=== PATIENT | male | born 1940 | race American Indian/Alaskan Native ===

== ENCOUNTER 2018-02-28 10:05 | Inpatient (IN) | payer MEDICARE, MEDICAID ==
[2018-02-28 10:18] VITALS: BMI 24.2
[2018-02-28 11:09] LABS: BASO # 0.03 K/mm3 (0.0-2.0); BASO % 0.2 % (0.0-3.0); EOS # 0.2 (0.0-0.7); EOS % 1.1 % (1.5-5.0); GRAN # 10.25 (1.4-6.5); GRAN % 78.5 % (50.0-68.0); HEMOGLOBIN 11.1 g/dL (14.0-18.0); LYMPH # 1.3 (1.2-3.4); LYMPH % 9.9 % (22.0-35.0); MEAN CELL VOLUME 84.9 fl (80.0-105.0); MEAN CORPUSCULAR HGB CONC 34.2 g/dl (31.0-37.0); MEAN PLATELET VOLUME 9.3 fl (7.0-11.0); MONO # 1.4 (0.1-0.6); MONO % 10.3 % (1.0-6.0); RBC 3.83 10^6/uL (3.5-6.1); RED CELL DISTRIBUTION WIDTH 12.9 % (11.5-14.5); WHITE BLOOD COUNT 13.1 10^3/ul (4.5-11.0)
[2018-02-28 11:19] LABS: ALB/GLOB RATIO 1.1 (1.1-1.8); ALBUMIN 3.6 g/dL (3.0-4.8); CALCIUM 9.6 mg/dL (8.4-10.5)
[2018-02-28] MEDS ORDERED: Iohexol 350 MG/100 ML VIAL ONE (11:28)
--- NOTE | 2018-02-28 11:59 | ED PDOC ---
Arrival/HPI - General Chief Complaint: Abnormal Skin Integrity Time Seen by Provider: 02/28/18 10:26 - History of Present Illness Narrative History of Present Illness (Text): 02/28/18 11:51 Patient is a 77 year old male with PMH of CAD who presents to the Emergency department for draining abscess in the right gluteal cleft. Patient says he noticed it 2 days ago as it was causing him some pain, then this morning he noticed it was draining purulent material. Patient says he thinks he had a fever yesterday because he was sweating but did not take his temperature at home. He denies chills, malaise, headache, chest pain, shortness of breath, abdominal pain, N&V, diarrhea, constipation, and LE pain/swelling. 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), denies alcohol use Past Medical History - Infectious Disease Hx of Infectious Diseases: None - Tetanus Immunization Tetanus Immunization: Unknown - Cardiac Hx Cardiac Disorders: Yes Hx Hypertension: Yes - Pulmonary Hx Respiratory Disorders: No Hx Chronic Obstructive Pulmonary Disease (COPD): Yes - Neurological Hx Neurological Disorder: No - HEENT Hx HEENT Disorder: Yes (WEARS RX GLASSES) Hx Cataracts: Yes (LEFT-) - Renal Hx Renal Disorder: No - Endocrine/Metabolic Hx Endocrine Disorders: No - Hematological/Oncological Hx Blood Transfusions: No Hx Blood Transfusion Reaction: No - Integumentary Hx Dermatological Disorder: No - Musculoskeletal/Rheumatological Hx Falls: No - Gastrointestinal Hx Gastrointestinal Disorders: No - Genitourinary/Gynecological Hx Reproductive Disorders: No - Psychiatric Hx Emotional Abuse: No Hx Physical Abuse: No Hx Substance Use: Yes (quit cocaine and pot use) - Past Surgical History Past Surgical History: Unable to Obtain - Surgical History Hx Cardiac Catheterization: Yes (10-13-13) Hx Coronary Stent: Yes (X2) - Anesthesia Hx Anesthesia Reactions: No Hx Malignant Hyperthermia: No - Suicidal Assessment Feels Threatened In Home Enviroment: No Family/Social History Family/Social History: Unknown Family HX Smoking Status: Former Smoker Hx Alcohol Use: Yes (quit) Hx Substance Use: Yes (quit cocaine and pot use) Allergies/Home Meds Allergies/Adverse Reactions: Allergies Penicillins Allergy (Verified 01/31/16 17:32) DIARRHEA Home Medications: Home Meds Medication Instructions Recorded Confirmed Aspirin [Aspirin Chewable] 81 mg PO DAILY 01/22/16 02/02/16 Review of Systems - Physician Review All systems were reviewed & negative as marked: Yes - Review of Systems Constitutional: Fevers Eyes: Normal. absent: Vision Changes ENT: Normal. absent: Hearing Changes Respiratory: Normal. absent: SOB, Cough, Wheezing Cardiovascular: Normal. absent: Chest Pain, Palpitations, Calf Pain Gastrointestinal: Normal. absent: Abdominal Pain, Constipation, Diarrhea, Nausea, Vomiting Genitourinary Male: Normal. absent: Dysuria, Frequency, Urinary Output Changes Musculoskeletal: Normal Skin: Abscess (right gluteal cleft, purulent drainage). absent: Pruritis Neurological: Normal. absent: Headache, Dizziness Physical Exam Vital Signs Temp Pulse Resp BP Pulse Ox 02/28/18 10:07 98.1 F 78 18 140/79 97 Temperature: Afebrile Pulse: Regular Respiratory Rate: Normal Appearance: Positive for: Well-Appearing, Non-Toxic, Comfortable Pain Distress: Mild Mental Status: Positive for: Alert and Oriented X 3 - Systems Exam Head: Present: Atraumatic, Normocephalic Pupils: Present: PERRL Extroacular Muscles: Present: EOMI Conjunctiva: Present: Normal Mouth: Present: Moist Mucous Membranes Neck: Present: Normal Range of Motion Respiratory/Chest: Present: Clear to Auscultation, Good Air Exchange. No: Respiratory Distress, Accessory Muscle Use Cardiovascular: Present: Regular Rate and Rhythm, Normal S1, S2. No: Murmurs Abdomen: Present: Normal Bowel Sounds. No: Tenderness, Distention, Peritoneal Signs Back: Present: Normal Inspection Upper Extremity: Present: Normal Inspection Lower Extremity: Present: Normal Inspection Neurological: Present: GCS=15, Speech Normal Skin: Present: Warm, Abscess (right gluteal cleft, small pinpoint area draining purulent material). No: Rashes Psychiatric: Present: Alert, Oriented x 3, Normal Insight, Normal Concentration Medical Decision Making ED Course and Treatment: 02/28/18 12:11 WBC 13.1, afebrile CT abd/pelvis with IV contrast shows perirectal abscess Gave abx General surgery consulted (Dr. Chatterjee) and surgical supervisor notified Will admit to Dr. Mcmullen - Lab Interpretations Lab Results: 02/28/18 11:05 02/28/18 11:05 Lab Results 02/28/18 11:05: Sodium 141, Potassium 3.1 L, Chloride 101, Carbon Dioxide 28, Anion Gap 15, BUN 19, Creatinine 1.5, Est GFR ( Amer) 55, Est GFR (Non- Af Amer) 45, Random Glucose 104, Calcium 9.6, Total Bilirubin 0.9, AST 65 H, ALT 88 H, Alkaline Phosphatase 68, Total Protein 7.0, Albumin 3.6, Globulin 3.3 , Albumin/Globulin Ratio 1.1 02/28/18 11:05: WBC 13.1 H D, RBC 3.83, Hgb 11.1 L, Hct 32.5 L, MCV 84.9, MCH 29.0, MCHC 34.2, RDW 12.9, Plt Count 291, MPV 9.3, Gran % 78.5 H, Lymph % (Auto ) 9.9 L, [place] % (Auto) 10.3 H, Eos % (Auto) 1.1 L, Baso % (Auto) 0.2, Gran # 10.25 H, Lymph # (Auto) 1.3, [place] # (Auto) 1.4 H, Eos # (Auto) 0.2, Baso # (Auto ) 0.03 - RAD Interpretation Radiology Orders: 02/28/18 10:53 ABD & PELVIS IV CONTRAST ONLY [CT] Stat - Medication Orders Current Medication Orders: Ciprofloxacin (Cipro 400mg/200ml Dsw) 400 mg in 200 mls @ 133.3 mls/hr IVPB STAT STA PRN Reason: Protocol Stop: 02/28/18 14:14 Metronidazole (Flagyl) 500 mg in 100 mls @ 100 mls/hr IVPB STAT STA PRN Reason: Protocol Stop: 02/28/18 13:43 - PA / CARDIOVASCULAR OR NURSE / Resident Statement / has reviewed & agrees with the documentation as recorded. / has examined the patient and agrees with the treatment plan. Disposition/Present on Arrival - Present on Arrival Any Indicators Present on Arrival: No History of DVT/PE: No History of Uncontrolled Diabetes: No Urinary Catheter: No History of Decub. Ulcer: No History Surgical Site Infection Following: None - Disposition Have Diagnosis and Disposition been Completed?: Yes Diagnosis: Perirectal abscess Disposition Time: 13:29 Condition: FAIR Referrals: Benedict,Milana, MD [Primary Care Provider] - Follow up with primary Forms: Connect (Tajik)
--- NOTE | 2018-02-28 12:40 | CT ---
PROCEDURE: CT Abdomen and Pelvis with contrast HISTORY: perirectal abscess COMPARISON: None. TECHNIQUE: Contrast dose: 100 cc of Omni 350 Radiation dose: Total exam DLP = 266 mGy-cm. This CT exam was performed using one or more of the following dose reduction techniques: Automated exposure control, adjustment of the mA and/or kV according to patient size, and/or use of iterative reconstruction technique. FINDINGS: LOWER THORAX: Unremarkable. LIVER: Unremarkable. No gross lesion or ductal dilatation. GALLBLADDER AND BILE DUCTS: Unremarkable. PANCREAS: Unremarkable. No gross lesion or ductal dilatation. SPLEEN: Unremarkable. ADRENALS: Unremarkable. No mass. KIDNEYS AND URETERS: Unremarkable. No hydronephrosis. No solid mass. VASCULATURE: Unremarkable. No aortic aneurysm. BOWEL: Unremarkable. No obstruction. No gross mural thickening. There is a multiloculated fluid collection on the right side of the rectum and perineum consistent with a rectal abscess. This measures 2.8 cm with by 7.1 cm AP x 6 cm height. APPENDIX: Normal appendix. PERITONEUM: Unremarkable. No free fluid. No free air. LYMPH NODES: Unremarkable. No enlarged lymph nodes. BLADDER: Unremarkable. REPRODUCTIVE: The prostate is enlarged measuring 42 x 48 by 56 mm BONES: No acute fracture. OTHER FINDINGS: None. IMPRESSION: There is a multiloculated fluid collection on the right side of the rectum and perineum consistent with a rectal abscess. This measures 2.8 cm with by 7.1 cm AP x 6 cm height.
[2018-02-28] MEDS ORDERED: metroNIDAZOLE IV 500 mg/100 ml 500 MG/100 ML BAG IVPB STA (12:44)
[2018-02-28] MEDS ORDERED: Ciprofloxacin 400mg/200ml D5W 400 MG/200 ML BAG IVPB STA (12:44)
--- NOTE | 2018-02-28 13:38 | CP.PCM.CON ---
History of Present Illness - History of Present Illness History of Present Illness: Surgery Consult note. Dr. Chatterjee 77yo M with PMHx of CAD, HTN, COPD here for evaluation of perianal pain. Patient reports a lesion on the right buttock, close to the anus, which he describes as a boil which started 3 days ago. He reports subjective fevers and chills over the same period of time. Denies any N/V/D. Has been having normal bowel movements, no blood noted. States that the lesion has been draining a small amount of yellow discharge since yesterday. Does report similar complaints about 1 year ago which improved without any interventions at that time. This episode is more painful and he decided to come into the ER for further evaluation. PMHx: CAD x/p stents x2, HTN, Cataract, COPD PSHx: Denies Family Hx: Non-contributory Social Hx: Former smoker, occasional marijuana use, Previous hx of cocaine addiction (denies current use); Denies ETOH. Allergy: PCN Review of Systems - Review of Systems All systems: reviewed and no additional remarkable complaints except - Constitutional Constitutional: Chills, Fever - Cardiovascular Cardiovascular: absent: Chest Pain, Dyspnea - Respiratory Respiratory: absent: Cough - Gastrointestinal Gastrointestinal: absent: Abdominal Pain, Nausea, Vomiting - Genitourinary Genitourinary: absent: Dysuria - Integumentary Integumentary: Lesions Past Patient History - Infectious Disease Hx of Infectious Diseases: None - Tetanus Immunizations Tetanus Immunization: Unknown - Past Social History Smoking Status: Former Smoker Alcohol: None Drugs: Denies, Other (previous hx of cocaine abuse/dependence) - CARDIAC Hx Cardiac Disorders: Yes Hx Hypertension: Yes - PULMONARY Hx Respiratory Disorders: No Hx Chronic Obstructive Pulmonary Disease (COPD): Yes - NEUROLOGICAL Hx Neurological Disorder: No - HEENT Hx HEENT Problems: Yes (WEARS RX GLASSES) Hx Cataracts: Yes (LEFT-) - RENAL Hx Chronic Kidney Disease: No - ENDOCRINE/METABOLIC Hx Endocrine Disorders: No - HEMATOLOGICAL/ONCOLOGICAL Hx Blood Transfusions: No Hx Blood Transfusion Reaction: No - INTEGUMENTARY Hx Dermatological Problems: No - MUSCULOSKELETAL/RHEUMATOLOGICAL Hx Falls: No - GASTROINTESTINAL Hx Gastrointestinal Disorders: No - GENITOURINARY/GYNECOLOGICAL Hx Reproductive Disorders: No - PSYCHIATRIC Hx Emotional Abuse: No Hx Physical Abuse: No Hx Substance Use: Yes (quit cocaine and pot use) - SURGICAL HISTORY Hx Cardiac Catheterization: Yes (10-13-13) Hx Coronary Stent: Yes (X2) - ANESTHESIA Hx Anesthesia Reactions: No Hx Malignant Hyperthermia: No Meds Allergies/Adverse Reactions: Allergies Allergy/AdvReac Type Severity Reaction Status Date / Time Penicillins Allergy DIARRHEA Verified 01/31/16 17:32 - Medications Medications: Current Medications Ciprofloxacin (Cipro 400mg/200ml Dsw) 400 mg in 200 mls @ 133.3 mls/hr IVPB STAT STA PRN Reason: Protocol Stop: 02/28/18 14:14 Metronidazole (Flagyl) 500 mg in 100 mls @ 100 mls/hr IVPB STAT STA PRN Reason: Protocol Stop: 02/28/18 13:43 Physical Exam - Constitutional Appears: Well, Non-toxic, No Acute Distress - Head Exam Head Exam: ATRAUMATIC, NORMAL INSPECTION, NORMOCEPHALIC - Eye Exam Eye Exam: EOMI, Normal appearance - ENT Exam ENT Exam: Mucous Membranes Moist - Respiratory Exam Respiratory Exam: NORMAL BREATHING PATTERN. absent: Accessory Muscle Use, Respiratory Distress - Cardiovascular Exam Cardiovascular Exam: absent: JVD - GI/Abdominal Exam GI & Abdominal Exam: Soft. absent: Distended, Guarding, Rebound, Rigid, Tenderness - Rectal Exam Additional comments: Left buttock with yellow drainage from small opening appreciated. No fluctuance , some induration. no eyrthema Rectal exam: no hemorrhoids, no blood, no internal fluctuance appreciated. - Extremities Exam Extremities exam: Positive for: normal inspection - Neurological Exam Neurological exam: Alert, Oriented x3 Results - Vital Signs Recent Vital Signs: Last Vital Signs Temp 98.1 F 02/28/18 10:07 Pulse 63 02/28/18 12:20 Resp 18 02/28/18 12:20 BP 119/58 L 02/28/18 12:20 Pulse Ox 98 02/28/18 12:20 - Labs Result Diagrams: 02/28/18 11:05 02/28/18 11:05 Labs: Laboratory Results - last 24 hr 02/28/18 02/28/18 11:05 11:05 WBC 13.1 H D RBC 3.83 Hgb 11.1 L Hct 32.5 L MCV 84.9 MCH 29.0 MCHC 34.2 RDW 12.9 Plt Count 291 MPV 9.3 Gran % 78.5 H Lymph % (Auto) 9.9 L [place] % (Auto) 10.3 H Eos % (Auto) 1.1 L Baso % (Auto) 0.2 Gran # 10.25 H Lymph # (Auto) 1.3 [place] # (Auto) 1.4 H Eos # (Auto) 0.2 Baso # (Auto) 0.03 Sodium 141 Potassium 3.1 L Chloride 101 Carbon Dioxide 28 Anion Gap 15 BUN 19 Creatinine 1.5 Est GFR ( Amer) 55 Est GFR (Non-Af Amer) 45 Random Glucose 104 Calcium 9.6 Total Bilirubin 0.9 AST 65 H ALT 88 H Alkaline Phosphatase 68 Total Protein 7.0 Albumin 3.6 Globulin 3.3 Albumin/Globulin Ratio 1.1 Assessment & Plan - Assessment and Plan (Free Text) Assessment: 77 yo M with perirectal abscess Plan: - Plan for bedside Incision and drainage today - Consent obtained and on chart - F/u wound cultures - Continue IV abx - Pain management - f/u AM labs Further recs as per Dr. Sen Bentley PGY1 surgery pager: [phone]
[2018-02-28] MEDS ORDERED: Potassium Chloride 20 mEq ER Tab PO STA (13:43)
[2018-02-28] MEDS ORDERED: Lidocaine 1% Inj (20ml) IJ STA (15:00)
[2018-02-28] MEDS ORDERED: HYDROmorphone 0.5 mg/0.5 ml ISec IVP STA (15:39)
--- NOTE | 2018-02-28 16:42 | PCM.SURG1 ---
Surgeon's Initial Post Op Note - Surgeon's Notes Surgeon: Dr. Chatterjee Assembler Surgical Garment: Sheree PGY1, Pernell PGY1 Type of Anesthesia: Local Pre-Operative Diagnosis: Perirectal abscess Operative Findings: Written consent obtained. Patient medicated with Dilaudid 0.5mg IVP. Patient prepped with betadine and draped in the usual sterile fashion in the prone position. Approximately 20cc of Lidocaine 1% used for local anesthesia, injected using 30G needle. Once adequate anesthesia was obtained, a #11 scalpel was used to create a cruciate incision over the most fluctuant portion of the abscess cavity. A small salena clamp was used to break up any loculations within the abscess cavity. Approximately 25cc of purulent material was expressed from the wound. A wound culture was obtained in sterile conditions and sent to the lab. The cavity was irrigated with copious amounts of normal saline. 1/4in iodoform gauze was used for packing. Wound dressed with sterile gauze and tape. Patient tolerated procedure well. No immediate complications noted. Post-Operative Diagnosis: same Operation Performed: Incision and Drainage of Perirectal abscess Specimen/Specimens Removed: wound culture Estimated Blood Loss: EBL {In ML}: 5 Blood Products Given: N/A Drains Used: No Drains Post-Op Condition: Good Date of Surgery/Procedure: 02/28/18 Time of Surgery/Procedure: 16:43
[2018-02-28] MEDS ORDERED: Oxycodone/Acetaminophen 5/325 mg Tab PO PRN (16:45)
[2018-02-28] MEDS: Pantoprazole 40 mg EC Tab PO SCH (17:17)
[2018-02-28] MEDS: Sucralfate 1 gm/10 ml Oral Susp UD PO SCH (17:17)
[2018-02-28 17:18] LABS: INR 1.31 (0.93-1.08)
[2018-02-28] MEDS: metroNIDAZOLE IV 500 mg/100 ml 500 MG/100 ML BAG IVPB SCH (22:05)
[2018-03-01] MEDS ORDERED: Pneumococcal 23-Valent Vaccine IM ONE (00:16)
[2018-03-01] MEDS: metroNIDAZOLE IV 500 mg/100 ml 500 MG/100 ML BAG IVPB SCH ×3 (05:37→21:06)
[2018-03-01] MEDS: Pantoprazole 40 mg EC Tab PO SCH ×2 (05:38→17:19)
[2018-03-01 07:54] LABS: BASO # 0.02 K/mm3 (0.0-2.0); BASO % 0.2 % (0.0-3.0); EOS # 0.4 (0.0-0.7); EOS % 4.3 % (1.5-5.0); GRAN # 5.63 (1.4-6.5); GRAN % 67.4 % (50.0-68.0); HEMOGLOBIN 10.4 g/dL (14.0-18.0); LYMPH # 1.7 (1.2-3.4); LYMPH % 19.8 % (22.0-35.0); MEAN CELL VOLUME 85.9 fl (80.0-105.0); MEAN CORPUSCULAR HEMOGLOBIN 28.7 pg (25.0-35.0); MEAN CORPUSCULAR HGB CONC 33.4 g/dl (31.0-37.0); MEAN PLATELET VOLUME 9.2 fl (7.0-11.0); MONO # 0.7 (0.1-0.6); MONO % 8.3 % (1.0-6.0); RBC 3.62 10^6/uL (3.5-6.1); RED CELL DISTRIBUTION WIDTH 12.9 % (11.5-14.5); WHITE BLOOD COUNT 8.4 10^3/ul (4.5-11.0)
[2018-03-01 08:08] LABS: CALCIUM 9.4 mg/dL (8.4-10.5)
[2018-03-01] MEDS: Sucralfate 1 gm/10 ml Oral Susp UD PO SCH ×2 (09:09→17:19)
--- NOTE | 2018-03-01 09:33 | CP.PCM.PN ---
Subjective - Date & Time of Evaluation Date of Evaluation: 03/01/18 Time of Evaluation: 07:30 - Subjective Subjective: General Surgery Note for Dr. Chatterjee Patient seen and examined at bedside. No acute event overnight. Patient is s/p bedside I&D POD#1. Patient denies pain. He has been afebrile. Patient is tolerating diet. He admits to flatus but denies BM. No complaints at this time. Objective - Vital Signs/Intake and Output Vital Signs (last 24 hours): Temp Pulse Resp BP Pulse Ox 98.1 F 55 L 20 107/59 L 99 03/01/18 08:26 03/01/18 08:26 03/01/18 08:26 03/01/18 09:08 03/01/18 08:26 Intake and Output: 03/01/18 03/01/18 06:59 18:59 Intake Total 1960 Output Total 2100 Balance -140 - Medications Medications: Current Medications Aspirin (Aspirin Chewable) 81 mg PO DAILY [facility] Last Admin: 03/01/18 09:09 Dose: 81 mg Metronidazole (Flagyl) 500 mg in 100 mls @ 100 mls/hr IVPB Q8 [facility]AD[facility] PRN Reason: Protocol Last Admin: 03/01/18 05:37 Dose: 100 mls/hr Ibuprofen (Motrin Tab) 400 mg PO Q6H PRN PRN Reason: Pain, Mild (1-3) Levofloxacin/Dextrose (Levaquin 750mg) 750 mg IVPB Q48H LADY PRN Reason: Protocol Last Admin: 03/01/18 09:09 Dose: 750 mg Oxycodone/Acetaminophen (Percocet 5/325 Mg Tab) 1 tab PO Q6H PRN PRN Reason: Pain, moderate (4-7) Stop: 03/03/18 16:46 Last Admin: 03/01/18 09:07 Dose: 1 tab Pantoprazole Sodium (Protonix Ec Tab) 40 mg PO 0630,1630 [facility] Last Admin: 03/01/18 05:38 Dose: 40 mg Ramipril (Altace) 2.5 mg PO DAILY [facility] Last Admin: 03/01/18 09:08 Dose: 2.5 mg Sucralfate (Carafate Oral Susp) 1 gm PO BID [facility] Last Admin: 03/01/18 09:09 Dose: 1 gm - Labs Labs: 03/01/18 07:00 03/01/18 07:00 PT 15.0 SECONDS (9.4-12.5) H 02/28/18 16:55 INR 1.31 (0.93-1.08) H 02/28/18 16:55 - Constitutional Appears: No Acute Distress - Head Exam Head Exam: ATRAUMATIC, NORMOCEPHALIC - Eye Exam Eye Exam: EOMI, Normal appearance Pupil Exam: PERRL - Neck Exam Neck Exam: Normal Inspection - Respiratory Exam Respiratory Exam: NORMAL BREATHING PATTERN - Cardiovascular Exam Cardiovascular Exam: REGULAR RHYTHM - GI/Abdominal Exam GI & Abdominal Exam: Soft, Normal Bowel Sounds. absent: Tenderness - Rectal Exam Rectal Exam: NORMAL INSPECTION Additional comments: I&D dressing and packing changed today - clean, dry and intact edema and induration has improved - Extremities Exam Extremities Exam: Normal Capillary Refill - Back Exam Back Exam: absent: CVA tenderness (L), CVA tenderness (R) - Neurological Exam Neurological Exam: Alert, Awake, CN II-XII Intact, Oriented x3 - Psychiatric Exam Psychiatric exam: Normal Affect, Normal Mood - Skin Skin Exam: Dry, Warm Assessment and Plan - Assessment and Plan (Free Text) Assessment: 77 M with perirectal abscess s/p bedside I&D POD#1 Plan: - f/u wound cultures - Continue IV abx - Pain management - Further recs as per Dr. Sen Gimenez PGY1
[2018-03-01] MEDS ORDERED: Potassium Chloride 20 mEq ER Tab PO ONE (09:44)
[2018-03-01] MEDS ORDERED: levoFLOXacin 750 mg in D5W 150 ML BAG IVPB SCH (10:00)
[2018-03-02] MEDS: Pantoprazole 40 mg EC Tab PO SCH ×2 (05:43→17:02)
[2018-03-02] MEDS: Sucralfate 1 gm/10 ml Oral Susp UD PO SCH ×2 (09:04→17:02)
--- NOTE | 2018-03-02 09:24 | CP.PCM.PN ---
Subjective - Date & Time of Evaluation Date of Evaluation: 03/02/18 Time of Evaluation: 09:21 - Subjective Subjective: Surgery: Dr Chatterjee Pt seen and examined. No acute overnight events. States he feels well and pain is well controlled. He admits to tolerating his diet & ambulating. Denies fevers , chills. Objective - Vital Signs/Intake and Output Vital Signs (last 24 hours): Temp Pulse Resp BP Pulse Ox 98.2 F 56 L 18 130/70 99 03/02/18 06:00 03/02/18 06:00 03/02/18 06:00 03/02/18 09:04 03/02/18 06:00 Intake and Output: 03/02/18 03/02/18 06:59 18:59 Intake Total 300 Output Total 0 Balance 300 - Medications Medications: Current Medications Aspirin (Aspirin Chewable) 81 mg PO DAILY [facility] Last Admin: 03/02/18 09:05 Dose: 81 mg Ibuprofen (Motrin Tab) 400 mg PO Q6H PRN PRN Reason: Pain, Mild (1-3) Levofloxacin (Levaquin) 750 mg PO Q48H [facility] Stop: 03/06/18 10:01 Metronidazole (Flagyl) 500 mg PO Q8 [facility] Stop: 03/05/18 22:01 Last Admin: 03/02/18 05:43 Dose: 500 mg Oxycodone/Acetaminophen (Percocet 5/325 Mg Tab) 1 tab PO Q6H PRN PRN Reason: Pain, moderate (4-7) Stop: 03/03/18 16:46 Last Admin: 03/01/18 09:07 Dose: 1 tab Pantoprazole Sodium (Protonix Ec Tab) 40 mg PO 0630,1630 [facility] Last Admin: 03/02/18 05:43 Dose: 40 mg Ramipril (Altace) 2.5 mg PO DAILY [facility] Last Admin: 03/02/18 09:04 Dose: 2.5 mg Sucralfate (Carafate Oral Susp) 1 gm PO BID [facility] Last Admin: 03/02/18 09:04 Dose: 1 gm - Labs Labs: 03/01/18 07:00 03/01/18 07:00 PT 15.0 SECONDS (9.4-12.5) H 02/28/18 16:55 INR 1.31 (0.93-1.08) H 02/28/18 16:55 - Constitutional Appears: Well, No Acute Distress - ENT Exam ENT Exam: Mucous Membranes Moist - Respiratory Exam Respiratory Exam: NORMAL BREATHING PATTERN - Cardiovascular Exam Cardiovascular Exam: RRR - GI/Abdominal Exam GI & Abdominal Exam: Soft. absent: Distended, Tenderness - Rectal Exam Additional comments: L gluteal incision with packing, no erythema or induration - Neurological Exam Neurological Exam: Alert, Awake, Oriented x3 - Skin Skin Exam: Dry, Warm Assessment and Plan - Assessment and Plan (Free Text) Assessment: 77M with perirectal abscess s/p bedside I&D; POD#2 Plan: - cont daily packing changes with iodoform - cont ABX - plan for DC with PO ABX tomorrow - d/w Dr. Sen Chakraborty, PGY-3
[2018-03-02] MEDS ORDERED: POLYETHYLENE GLYCOL 3350 17 GM/Dose PACKET PO ONE (14:30)
--- NOTE | 2018-03-03 05:15 | PN ---
DATE: 03/01/2018 SUBJECTIVE: The patient is a 77-year-old male. The patient was seen and examined at the bedside on 03/01/2018 and looking comfortable. No nausea, vomiting or diarrhea. No hematuria or hematochezia. No swelling of the leg. No chest pain. No palpitation. No headache. No dizziness. He admits to flatus, but denies bowel movement. PHYSICAL EXAMINATION: GENERAL: Temperature 98.1, pulse 55, respiratory rate 20, blood pressure 107/59, pulse oximetry is 99. HEENT: Head, normocephalic and atraumatic. Eyes, PERRLA. Extraocular muscles intact. Conjunctivae clear. Nose patent. Mucous membrane moist. NECK: Supple. No carotid bruit. No JVD or thyromegaly. CHEST: Bilaterally symmetrical. HEART: S1, S2 positive. LUNGS: Clear to auscultation. ABDOMEN: Soft. Bowel sounds present. No organomegaly. EXTREMITIES: No edema. No cyanosis. NEUROLOGIC: The patient is awake, alert. Moving all four extremities. No focal deficit. MEDICATIONS: Aspirin, Flagyl, morphine, Levaquin, Percocet, Protonix, Altace and Carafate. LABORATORY DATA: White blood cell is 8.4, hemoglobin 10.4, hematocrit 31.1, platelets 314. Sodium 146, potassium 3.3, BUN 17, creatinine 1.5 and glucose 105. ASSESSMENT AND PLAN: Mr. Patrick Castañeda is a 77-year-old male with anemia; hypokalemia, replaced; came with perirectal abscess, status post bedside incision and drainage, postoperative day 1. Followup wound culture. Continue IV antibiotics, pain management as per Dr. Chatterjee's team, CAT scan of abdomen and pelvis done, reviewed by me. Patient has history of coronary artery disease, status post two stents in 2012. Getting aspirin and ramipril. Gastrointestinal and deep venous thrombosis prophylaxis. Repeat labs. We will followup. Milana Mcmullen MD
[2018-03-03 06:30] LABS: HEMOGLOBIN 10.4 g/dL (14.0-18.0); MEAN CELL VOLUME 85.6 fl (80.0-105.0); MEAN CORPUSCULAR HEMOGLOBIN 28.2 pg (25.0-35.0); MEAN CORPUSCULAR HGB CONC 32.9 g/dl (31.0-37.0); MEAN PLATELET VOLUME 9.2 fl (7.0-11.0); RBC 3.69 10^6/uL (3.5-6.1); RED CELL DISTRIBUTION WIDTH 13.1 % (11.5-14.5); WHITE BLOOD COUNT 5.2 10^3/ul (4.5-11.0)
[2018-03-03] MEDS: Pantoprazole 40 mg EC Tab PO SCH (06:37)
[2018-03-03 07:08] LABS: CALCIUM 9.3 mg/dL (8.4-10.5)
[2018-03-03] MEDS ORDERED: POLYETHYLENE GLYCOL 3350 17 GM/Dose PACKET PO STA (07:56)
--- NOTE | 2018-03-03 08:33 | CP.PCM.PN ---
Subjective - Date & Time of Evaluation Date of Evaluation: 03/03/18 Time of Evaluation: 08:00 - Subjective Subjective: Surgery Progress note. Dr. Chatterjee Pt seen and examined at bedside. Pain well controlled. Perirectal wound packing removed this morning during rounds. Wound open and draining minimal purulent material. Patient denies fevers or chills. No new complaints. Objective - Vital Signs/Intake and Output Vital Signs (last 24 hours): Temp Pulse Resp BP Pulse Ox 97.9 F 51 L 19 134/70 100 03/02/18 16:00 03/02/18 16:00 03/02/18 16:00 03/02/18 16:00 03/02/18 16:00 Intake and Output: 03/03/18 03/03/18 06:59 18:59 Intake Total 420 Balance 420 - Medications Medications: Current Medications Aspirin (Aspirin Chewable) 81 mg PO DAILY [facility] Last Admin: 03/02/18 09:05 Dose: 81 mg Docusate Sodium (Colace) 100 mg PO BID [facility] Stop: 03/03/18 13:00 Last Admin: 03/02/18 17:02 Dose: 100 mg Ibuprofen (Motrin Tab) 400 mg PO Q6H PRN PRN Reason: Pain, Mild (1-3) Last Admin: 03/02/18 21:54 Dose: 400 mg Levofloxacin (Levaquin) 750 mg PO Q48H [facility] Stop: 03/06/18 10:01 Magnesium Oxide (Mag-Ox) 400 mg PO BID [facility] Metronidazole (Flagyl) 500 mg PO Q8 [facility] Stop: 03/05/18 22:01 Last Admin: 03/03/18 06:37 Dose: 500 mg Oxycodone/Acetaminophen (Percocet 5/325 Mg Tab) 1 tab PO Q6H PRN PRN Reason: Pain, moderate (4-7) Stop: 03/03/18 16:46 Last Admin: 03/01/18 09:07 Dose: 1 tab Pantoprazole Sodium (Protonix Ec Tab) 40 mg PO 0630,1630 [facility] Last Admin: 03/03/18 06:37 Dose: 40 mg Ramipril (Altace) 2.5 mg PO DAILY [facility] Last Admin: 03/02/18 09:04 Dose: 2.5 mg Sucralfate (Carafate Oral Susp) 1 gm PO BID [facility] Last Admin: 03/02/18 17:02 Dose: 1 gm - Labs Labs: 03/03/18 06:00 03/03/18 06:00 PT 15.0 SECONDS (9.4-12.5) H 02/28/18 16:55 INR 1.31 (0.93-1.08) H 02/28/18 16:55 - Constitutional Appears: Well, Non-toxic, No Acute Distress - Head Exam Head Exam: ATRAUMATIC, NORMAL INSPECTION, NORMOCEPHALIC - Eye Exam Eye Exam: EOMI, Normal appearance - ENT Exam ENT Exam: Mucous Membranes Moist - Respiratory Exam Respiratory Exam: NORMAL BREATHING PATTERN. absent: Accessory Muscle Use, Respiratory Distress - Cardiovascular Exam Cardiovascular Exam: RRR. absent: JVD - GI/Abdominal Exam GI & Abdominal Exam: Soft. absent: Distended, Firm, Guarding, Rigid, Tenderness , Rebound - Rectal Exam Additional comments: right babs rectal wound with minimal purulent material expressed. Packing removed. Clean and dry gauze replaced. No erythema noted around wound. Improving induration - Extremities Exam Extremities Exam: Normal Inspection. absent: Calf Tenderness - Neurological Exam Neurological Exam: Alert, Awake, Oriented x3 - Skin Skin Exam: Dry, Intact, Normal Color, Warm Assessment and Plan - Assessment and Plan (Free Text) Assessment: 77yo M with Babs-rectal abscess. S/p I&D. POD 3 Plan: - wound packing removed this morning - Patient cleared for discharge - Recommend PO Abx: Bactrim - consider PO probiotic capsules - Keep area clean and dry. Dry gauze and tape as needed - Miralax and bowel function prior to discharge - Follow up with Dr. Chatterjee in clinic. Call for appointment Further recs as per Dr. Sen Bentley PGY1 surgery pager: [phone]
--- NOTE | 2018-03-03 08:33 | HP ---
DATE OF EXAM: 02/28/2018 The patient is a 77-year-old male. CHIEF COMPLAINT: Abscess on the buttock. HISTORY OF PRESENT ILLNESS: is a 77-year-old male, was seen and examined by me on the bedside on 02/28/2018. Patient has past medical history of coronary artery disease, came to the emergency room for draining abscess in the right gluteal cleft. Patient said he noticed it 2 days ago as it was causing him some pain. Then, the day of admission, patient noticed that it was draining purulent material. Patient states he thinks he had fever yesterday because he was sweating out, but not taking his temporary medications at home. He denied chills, malaise or headache. No nausea, vomiting or diarrhea. No hematuria or hematochezia. No swelling of the leg. PAST MEDICAL HISTORY: Coronary artery disease, SP 2 stents in 2012, hypertension, COPD, cataract surgery, history of substance abuse, quit cocaine and pot use, history of coronary artery stenting. FAMILY HISTORY: Father and mother, noncontributory. HABITS: Former smoker. Alcohol, quit. Substance use of cocaine and pot. ALLERGIES: PATIENT IS ALLERGIC WITH PENICILLIN, CAUSING DIARRHEA. HOME MEDICATIONS: Patient did not remember exactly, but he knows he was taking aspirin. REVIEW OF SYSTEMS: The patient was seen and examined on the bedside in his room, status post incision and drainage, has dressing; that moment, had a little bit fever. No vision changes. No hearing loss. No shortness of breath. No palpitation. No calf tenderness. No constipation, diarrhea, nausea or vomiting. No dysuria. PHYSICAL EXAMINATION: VITAL SIGNS: Temperature 98.1, pulse is 78, respiratory rate 18, blood pressure 140/79. HEENT: Head, normocephalic and atraumatic. Eyes, PERRLA. Extraocular muscles intact. Conjunctivae clear. Nose patent. NECK: Supple. No carotid bruit, JVD, or thyromegaly. CHEST: Bilaterally symmetrical. HEART: S1, S2 positive. LUNGS: Clear to auscultation. ABDOMEN: Soft. Bowel sounds present. No organomegaly. EXTREMITIES: No edema. No cyanosis. NEUROLOGIC: Patient is awake, alert. Moving all four extremities. No focal deficits. LABORATORY DATA: White blood cell is 13.1, hemoglobin 11.1, hematocrit 32.5, platelets 291. Sodium 141, potassium 3.1, BUN 19, creatinine 1.5, glucose 104. ASSESSMENT AND PLAN: Mr. is a 77-year-old male with leukocytosis, anemia; hypokalemia, replaced; came with perirectal abscess, incision and drainage done, dressing was done; getting antibiotics and wound care, repeat labs for potassium; history of coronary artery disease, noncompliant, hypertension, chronic obstructive pulmonary disease, congestive heart failure, gastrointestinal and deep vein thrombosis prophylaxis. Repeat labs. We will follow up. Milana Mcmullen MD
[2018-03-03 08:47] VITALS: PULSE 62; RESP 18; TEMP 97.5; O2SAT 99
[2018-03-03] MEDS: Sucralfate 1 gm/10 ml Oral Susp UD PO SCH (09:00)
[2018-03-03 09:04] VITALS: BP 138/68
--- NOTE | 2018-03-03 09:29 | PN ---
DATE: 03/02/2018 SUBJECTIVE: Patient is 77-year-old male. Patient is seen and examined at bedside, looking comfortable, no change in the status. Nothing happened overnight. Feels well. Pain is getting under control. Tolerating his diet. Ambulating. Denies fever or chills. Prior to getting changed by the Surgery. PHYSICAL EXAMINATION: VITAL SIGNS: Temperature 98.2, pulse 56, respiratory rate 18, blood pressure 130/70, pulse oximetry 99%. HEENT: Head: Normocephalic, atraumatic. Eyes: PERRLA. Extraocular muscles are intact. Conjunctivae clear. Nose: Patent. Mucous membranes are moist. NECK: Supple. No carotid bruit. No JVD or thyromegaly. CHEST: Bilaterally symmetrical. HEART: S1 and S2 positive. LUNGS: Clear to auscultation. ABDOMEN: Soft. Bowel sounds are positive. No organomegaly. EXTREMITIES: No edema. No cyanosis. NEUROLOGIC: Patient is awake and alert. Moving all four extremities with no focal deficit. MEDICATIONS: Aspirin, Motrin, , Flagyl, oxycodone, Protonix, ramipril, sucralfate. LABORATORY DATA: White blood cells 8.4, hemoglobin 10.4, hematocrit 31.1, platelet 340. Sodium 143, potassium 3.3, BUN 70, creatinine 1.5, glucose 105. ASSESSMENT AND PLAN: Mr. Patrick Castañeda is a 77-year-old male with anemia, hypokalemia, coronary artery disease, came with perirectal abscess status post bedside incision and drainage, postoperative day 2. Continue daily packing changes with iodoform as per Surgery. We will discharge patient home tomorrow with p.o. antibiotics and we will do arrangement with visiting nurse for home wound care. . History of coronary artery disease, status post two cardiac stenting in 2012 and hypertension, getting . We will continue with gastric and deep venous thrombosis prophylaxis. Repeat labs. We will follow up. Milana Mcmullen MD
[2018-03-03] MEDS ORDERED: Magnesium Oxide 400 mg Tab UD PO SCH (10:00)
[2018-03-03] MEDS ORDERED: levoFLOXacin 750 MG TAB PO SCH (10:00)
[2018-03-03] MEDS ORDERED: Magnesium Sulfate 1 gm in D5W 1 GM/100 ML BAG IVPB ONE (12:21)
--- NOTE | 2018-03-03 12:32 | CP.PCM.CON ---
History of Present Illness - History of Present Illness History of Present Illness: 77 year old male with PMH of CAD S/P PCI, HTN, COPD cataracts came in to [facility] [place] complaining of perianal pain on the right side, with difficult sitting down. He had a boil in the area and it got bigger. He did not have animal contacts, no diarrhea, no nausea or vomiting, no abdominal pain, no fever or chills, no headache or dizziness, no chest pain, no SOB, no cough or colds, no dysuria. I and D was done 3 days ago and patient is feeling much better. Packing was removed today and as per Surgery, there is minimal purulent material but no more packing needed and patient only has a bandage in place. Cultures taken during I and D is showing MRSA. Infectious Diseases consult is requested to further evaluate and manage. Review of Systems - Review of Systems All systems: reviewed and no additional remarkable complaints except (as per HPI ) Past Patient History - Infectious Disease Hx of Infectious Diseases: None - Tetanus Immunizations Tetanus Immunization: Unknown - Past Social History Smoking Status: Former Smoker - CARDIAC Hx Cardiac Disorders: Yes Hx Hypertension: Yes - PULMONARY Hx Respiratory Disorders: No Hx Chronic Obstructive Pulmonary Disease (COPD): Yes - NEUROLOGICAL Hx Neurological Disorder: No - HEENT Hx HEENT Problems: Yes (WEARS RX GLASSES) Hx Cataracts: Yes (LEFT-) - RENAL Hx Chronic Kidney Disease: No - ENDOCRINE/METABOLIC Hx Endocrine Disorders: No - HEMATOLOGICAL/ONCOLOGICAL Hx Blood Disorders: No - INTEGUMENTARY Hx Dermatological Problems: No - MUSCULOSKELETAL/RHEUMATOLOGICAL Hx Falls: No - GASTROINTESTINAL Hx Gastrointestinal Disorders: No - GENITOURINARY/GYNECOLOGICAL Hx Genitourinary Disorders: No - PSYCHIATRIC Hx Emotional Abuse: No Hx Physical Abuse: No Hx Substance Use: Yes (H/O COCAINE ,MARIJUANA USE QUIT) - SURGICAL HISTORY Hx Surgeries: Yes Hx Cardiac Catheterization: Yes (10-13-13) Hx Coronary Stent: Yes (X2) - ANESTHESIA Hx Anesthesia Reactions: No Hx Malignant Hyperthermia: No Meds Home Medications: Home Medication List Medication Instructions Recorded Confirmed Type Docusate [Colace] 100 mg PO BID cap 03/03/18 Rx Linezolid [Zyvox] 600 mg PO BID 7 Days tab 03/03/18 Rx Magnesium Oxide [Mag-Ox] 400 mg PO BID tab 03/03/18 Rx Allergies/Adverse Reactions: Allergies Allergy/AdvReac Type Severity Reaction Status Date / Time Penicillins Allergy DIARRHEA Verified 02/28/18 17:24 - Medications Medications: Current Medications Aspirin (Aspirin Chewable) 81 mg PO DAILY [facility] Last Admin: 03/03/18 09:00 Dose: 81 mg Docusate Sodium (Colace) 100 mg PO BID [facility] Stop: 03/03/18 13:00 Last Admin: 03/03/18 09:00 Dose: 100 mg Ibuprofen (Motrin Tab) 400 mg PO Q6H PRN PRN Reason: Pain, Mild (1-3) Last Admin: 03/02/18 21:54 Dose: 400 mg Levofloxacin (Levaquin) 750 mg PO Q48H [facility] Stop: 03/06/18 10:01 Last Admin: 03/03/18 09:00 Dose: 750 mg Magnesium Oxide (Mag-Ox) 400 mg PO BID [facility] Last Admin: 03/03/18 09:00 Dose: 400 mg Metronidazole (Flagyl) 500 mg PO Q8 [facility] Stop: 03/05/18 22:01 Last Admin: 03/03/18 06:37 Dose: 500 mg Oxycodone/Acetaminophen (Percocet 5/325 Mg Tab) 1 tab PO Q6H PRN PRN Reason: Pain, moderate (4-7) Stop: 03/03/18 16:46 Last Admin: 03/01/18 09:07 Dose: 1 tab Pantoprazole Sodium (Protonix Ec Tab) 40 mg PO 0630,1630 [facility] Last Admin: 03/03/18 06:37 Dose: 40 mg Ramipril (Altace) 2.5 mg PO DAILY [facility] Last Admin: 03/03/18 09:00 Dose: 2.5 mg Sucralfate (Carafate Oral Susp) 1 gm PO BID [facility] Last Admin: 03/03/18 09:00 Dose: 1 gm Physical Exam - Constitutional Appears: Non-toxic, No Acute Distress - Head Exam Head Exam: NORMAL INSPECTION - ENT Exam ENT Exam: Mucous Membranes Moist - Neck Exam Neck exam: Negative for: Meningismus - Respiratory Exam Respiratory Exam: Decreased Breath Sounds. absent: Rales - Cardiovascular Exam Cardiovascular Exam: +S1, +S2 - GI/Abdominal Exam GI & Abdominal Exam: Soft. absent: Tenderness - Skin Additional comments: right perianal area with lanced abscess with minimal discharge, no bleeding, surrounding area is soft and not indurated Results - Vital Signs Recent Vital Signs: Last Vital Signs Temp 97.5 F L 03/03/18 08:47 Pulse 62 03/03/18 08:47 Resp 18 03/03/18 08:47 BP 138/68 03/03/18 09:00 Pulse Ox 99 03/03/18 08:47 - Labs Result Diagrams: 03/03/18 06:00 03/03/18 06:00 Labs: Laboratory Results - last 24 hr 03/03/18 03/03/18 06:00 06:00 WBC 5.2 D RBC 3.69 Hgb 10.4 L Hct 31.6 L MCV 85.6 MCH 28.2 MCHC 32.9 RDW 13.1 Plt Count 351 MPV 9.2 Sodium 145 Potassium 3.9 Chloride 107 Carbon Dioxide 29 Anion Gap 13 BUN 15 Creatinine 1.5 Est GFR ( Amer) 55 Est GFR (Non-Af Amer) 45 Random Glucose 100 Calcium 9.3 Magnesium 1.5 L Assessment & Plan - Assessment and Plan (Free Text) Plan: Assessment Perianal abscess with MRSA CAD S/P PCI HTN COPD Plan Since it has underwent I and D and no more packing needed, we can d/c Flagyl; started Zyvox and patient will need 7 days of antibiotics, with outpatient follow up with PMD
== END 2018-03-03 18:47 | disposition home or self-care (01) | DRG 346 ==
LOC: ED 10:05 → ERH 13:24 → 3RSO 15:35 → 3RNO 03-01 21:42
PROVIDERS: ADMIT Internal Medicine; ATTEND Internal Medicine
PROC: 0D9P0ZX Drainage of Rectum, Open Approach, Diagnostic (ICD-10-PCS; principal; 2018-02-28)
DX: K61.1 Rectal abscess (principal); B95.62 Methicillin resistant Staphylococcus aureus infection as the cause of diseases classified elsewhere; F12.90 Cannabis use, unspecified, uncomplicated; I25.10 Atherosclerotic heart disease of native coronary artery without angina pectoris; J44.9 Chronic obstructive pulmonary disease, unspecified; E87.6 Hypokalemia; I11.0 Hypertensive heart disease with heart failure; I50.9 Heart failure, unspecified; H26.9 Unspecified cataract; Z95.5 Presence of coronary angioplasty implant and graft; Z88.0 Allergy status to penicillin; Z87.891 Personal history of nicotine dependence; Z91.19 Patient's noncompliance with other medical treatment and regimen